=== PATIENT | female | born 2000 | race Caucasian/White ===

== ENCOUNTER 2023-05-22 10:15 | Outpatient (RCR) | payer OTHER, SELFPAY ==
[2023-05-21 11:47] VITALS: BP 127/103; PULSE 64; TEMP 37.1
[2023-05-21 11:50] VITALS: BMI 28.0
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
--- NOTE | 2023-05-22 15:41 | HO.PHP ---
PHP staff followed up with Nora to get clarification around a letter she is seeking providers to write for her. Nora disclosed that she needs a letter for work stating that she is here. Nora voiced that she does not want her place of employment to know she is here and asked if we could say she is receiving medical treatment. PHP staff expressed that she will need to follow up with her manager print to explore if the wording on the generic document can be altered to the way she is requesting. PHP staff informed her that she will let her know.
--- NOTE | 2023-05-22 15:44 | HO.PHP ---
PHP staff spoke with the manger and went to inform Nora that we are unable to alter the form to the way she was wanting but when the clinician went to get her from the group, she was not present. PHP staff called Nora to see where she was. Nora disclosed that she wrote on the provider form that she was staying a half day. PHP staff informed Nora that is not how the PHP program works and provided psychoeducation around the guidelines and when half days are incorporated if insurance allows for that. Nora was receptive. PHP staff explored if Nora would be partaking for the full day tomorrow. Nora disclosed that she would be. PHP staff was receptive and informed her that she will see her tomorrow.
--- NOTE | 2023-05-22 16:29 | HO.PHP ---
Clients case was reviewed and opened today in treatment team.
--- NOTE | 2023-05-23 08:40 | HO.PHP ---
PHP staff received a phone call from Nora voicing that she won't be attending program today due to her not feeling well. PHP staff was receptive and explored what Nora is hoping to get from the program. Nora informed the PHP staff that she thought the program was going to be more individual based and didn't realize it was a group setting. PHP staff reminded Nora around how PHP services look and stated that we are a group program. PHP staff disclosed that if they are looking for individual support we encourage them to continue with there OP therapist. Nora mentioned she has a therapist but is having a challenging time with them at this time and was hoping for a new therapist and med provider referral. Nora noted that she met with the med provider yesterday and really liked her but found out that she won't be here for 2 weeks and she will have to meet with someone new. PHP staff voiced that due to her having a therapist and med provider in place, they will not be placing a referral. PHP staff disclosed if she needs resources of individuals she would like to call for services, she can provide that. Nora was receptive. PHP staff voiced if she is not feeling this is the program for her to please let the team know. Nora voiced that she will call Friday before groups to let the team know her decision. PHP staff was receptive.
--- NOTE | 2023-05-26 11:06 | HO.PHP ---
PHP staff member received a phone call from Nora noting that she would like to discharge from the program due to misunderstanding what the purpose of PHP is. Nora disclosed that she was not seeking this type of support and got a new med provider that she will be meeting with. Nora mentioned that was what she was seeking when in attendance here, was to have access to a new med provider. PHP staff was receptive and explored with Nora if she will be continuing with her OP therapist. Nora reported that she will be. PHP staff also assessed safety prior to discharging Nora. Nora reported no concerns around safety. Nora asked the PHP staff member if she could have a letter for work showing she was at the program for the two days. PHP staff voiced that she needs to follow up with her administration manager and will get back to her regarding the note. Nora was receptive.
== END 2023-05-22 23:59 | disposition home or self-care (01) ==
LOC: HO.PHPA 10:15
PROVIDERS: Visit Provider Psychiatry & Neurology Psychiatry
DX: F33.2 Major depressive disorder, recurrent severe without psychotic features (principal); F42.9 Obsessive-compulsive disorder, unspecified; F41.1 Generalized anxiety disorder
CPT/HCPCS: 90791; 90853

== ENCOUNTER → 2023-05-22 10:15 | Outpatient (BNV) | payer OTHER, SELFPAY | PROVIDERS: Visit Provider Clinical Nurse Specialist Psychiatric/Mental Health | DX: F33.2 Major depressive disorder, recurrent severe without psychotic features (principal); F42.9 Obsessive-compulsive disorder, unspecified; F41.1 Generalized anxiety disorder | CPT/HCPCS: 99204 ==